=== PATIENT | female | born 1980 ===

== ENCOUNTER 2017-09-10 09:56 | Inpatient (IN) | payer BC ==
[2017-09-10] MEDS ORDERED: ceFAZolin 2 GM in Premix Bag 1 BAG IV ONE (14:12)
[2017-09-10] MEDS ORDERED: Sodium Chloride 0.9% 10 ML Syringe FLUSH PRN ×2 (14:12→16:55)
[2017-09-10] MEDS ORDERED: Citric Acid/Sodium Citrate Solution 30 ML Cup PO ONE (14:12)
[2017-09-10] MEDS ORDERED: Metoclopramide 10 MG/2 ML SDV IVPUSH ONE (14:12)
[2017-09-10] MEDS ORDERED: Lactated Ringers 1,000 ML IV SCH (14:15)
--- NOTE | 2017-09-10 14:16 | PCM.LDHP ---
<Viviana Huerta - Last Filed: 09/10/17 14:35> L&D History of Present Illness - General Date of Service: 09/10/17 Admit Problem/Dx: Admission Diagnosis/Problem Admission Diagnosis/Problem Previous section Source of Information: Patient History Limitations: Reports: No Limitations - History of Present Illness Introduction:: Patient is a that presents to labor and delivery with headaches and mild fever. Patient is 40 wks today. JACKSON is 09/10/17. Patient's blood type is O + with a negative antibody screen. She is GBS +. She had a previous section for her last . Patient has had normal follow up. Patient reports baby is moving. Baby is floating out of the pelvis, this is supported by previous ultrasound done on 09/09/17 and pelvic examination by Ludwin maneuver. Pelvic exam reveals 0 effaced, 1 cm, posterior, soft cervix. Baby is believed to be lying in an oblique position. The patient is no acute distress and the rest of physical exam is unremarkable Plan: section due to oblique lie Continue monitoring Location, : Reports: Abdomen Quality: Reports: Pressure Severity: Mild - Related Data Allergies/Adverse Reactions: Allergies Allergy/AdvReac Type Severity Reaction Status Date / Time No Known Allergies Allergy Verified 04/01/15 15:11 Home Medications: Home Meds PNV #116/Iron Fumarate/FA/DHA [Expecta Combo Pack] 1 tab PO DAILY 08/04 [History] Acetaminophen/oxyCODONE [Percocet 325-5 MG] 1 - 2 tab PO Q4H PRN #60 tablet 09/11 [Rx] Docusate Sodium/Sennosides [Senna Plus] 2 tab PO BID tablet 04/06/15 [Rx] Acetaminophen/oxyCODONE [Percocet 325-5 MG] 1 - 2 tab PO Q4H PRN #30 tablet [Rx] Ibuprofen [Motrin] 600 mg PO Q6H PRN #30 tablet 01/17/16 [Rx] Past Medical History [employer] OPERATOR History: Reports: , Spontaneous : 3 Para: 1 (1011) LMP (Approximate): - Past Surgical History HEENT Surgical History: Reports: Oral Surgery GI Surgical History: Reports: Colonoscopy, Other (See Below) Other GI Surgeries/Procedures: Partial cholectomy 04/02/14 Female Surgical History: Reports: Section (2016) Social & Family History - Tobacco Use Smoking Status *Q: Never Smoker Second Hand Smoke Exposure: No - Alcohol Use Days Per Week of Alcohol Use: 0 Number of Drinks Per Day: 0 Total Drinks Per Week: 0 - Recreational Drug Use Recreational Drug Use: No Drug Use in Last 12 Months: No H&P Review of Systems - Review of Systems: Review Of Systems: See Below General: Reports: No Symptoms HEENT: Reports: Headaches (Rated as 9/10 on 09/09/17, it is now 4/10 on . BP is within normal limits) Pulmonary: Reports: No Symptoms Cardiovascular: Reports: No Symptoms Gastrointestinal: Reports: No Symptoms Genitourinary: Reports: No Symptoms Musculoskeletal: Reports: No Symptoms Skin: Reports: No Symptoms Psychiatric: Reports: No Symptoms Neurological: Reports: Headache Hematologic/Lymphatic: Reports: No Symptoms Immunologic: Reports: No Symptoms L&D Exam - Exam Exam: See Below - Vital Signs Vital Signs: Last Vital Signs Temp 98.8 F 09/10/17 13:52 Pulse 82 09/10/17 13:52 Resp 16 09/10/17 13:52 BP 120/76 09/10/17 13:52 Pulse Ox 97 09/10/17 13:52 - OB Specific Movement: Active Heart Tones: Present Heart Tones per Min: 160 Presentation: Transverse (oblique, head to right side) - Loredo Score Loredo Score Cervix Position: Posterior Loredo Score Consistency: Soft Loredo Score Effacement: 0-30% Loredo Score Dilation: 1-2 cm Loredo Score 's Station: -3 (floating out of pelvis) Loredo Score Total: 3 - Exam General: Alert, Oriented HEENT: Conjunctiva Clear, Hearing Intact, Mucosa Moist & [place], Normal Nasal Septum Neck: Supple, Trachea Midline Lungs: Clear to Auscultation, Normal Respiratory Effort Cardiovascular: Regular Rate, Regular Rhythm Rectal Exam: Deferred Genitourinary: Normal external exam, Normal bimanual exam Back Exam: Normal Inspection Extremities: Normal Inspection, Normal Range of Motion, Non-Tender, No Pedal Edema, Normal Capillary Refill Skin: Warm, Dry, Intact Psychiatric: Alert, Normal Affect, Normal Mood Problem List Initiated/Reviewed/Updated: No Assessment/Plan Comment:: Patient is a that presents to labor and delivery with headaches and mild fever. Patient is 40 wks today. JACKSON is 09/10/17. Patient's blood type is O + with a negative antibody screen. She is GBS +. She had a previous section for her last . Patient has had normal follow up. Patient reports baby is moving. Baby is floating out of the pelvis, this is supported by previous ultrasound done on 09/09/17 and pelvic examination by Ludwin maneuver. Pelvic exam reveals 0 effaced, 1 cm, posterior, soft cervix. Baby is believed to be lying in an oblique position. The patient is no acute distress and the rest of physical exam is unremarkable Plan: section due to oblique lie Continue monitoring <Candido Macias - Last Filed: 09/10/17 14:51> L&D History of Present Illness - General Admit Problem/Dx: Patient Status Order with Admit Dx/Problem 09/10/17 14:12 Patient Status [ADT] Routine Admission Diagnosis/Problem Admission Diagnosis/Problem Previous section Source of Information: Patient History Limitations: Reports: No Limitations - History of Present Illness Introduction:: Temp last evening 100.4 patient is afebrile now headache rated as 9/10 last evening now rated at 4/10 on Ludwin's maneuver cephalic presentation his oblique lie patient's right false pelvis Location, : Reports: Abdomen Quality: Reports: Pressure Severity: Mild Improves with: Reports: None Worsens with: Reports: None Associated Symptoms: Reports: N Past Medical History Gastrointestinal History: Reports: Other (See Below) (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 (Dr. Lancaster)) [employer] OPER[employer] History: Reports: , Spontaneous LMP (Approximate): (Prior 1) H&P Review of Systems - Review of Systems: Review Of Systems: See Below General: Reports: No Symptoms HEENT: Reports: Headaches Pulmonary: Reports: No Symptoms Cardiovascular: Reports: No Symptoms Gastrointestinal: Reports: No Symptoms Genitourinary: Reports: No Symptoms Musculoskeletal: Reports: No Symptoms Skin: Reports: No Symptoms Psychiatric: Reports: No Symptoms Neurological: Reports: No Symptoms Hematologic/Lymphatic: Reports: No Symptoms Immunologic: Reports: No Symptoms L&D Exam - Exam Exam: See Below - Vital Signs Vital Signs: Last Vital Signs Temp 98.8 F 09/10/17 14:34 Pulse 77 09/10/17 14:34 Resp 16 09/10/17 14:34 BP 120/76 09/10/17 14:34 Pulse Ox 97 09/10/17 14:34 - OB Specific Fundal Height In cm: 40 Contraction Intensity: Mild Presentation: Transverse (oblique, head to right side of the patient) - Loredo Score Loredo Score Cervix Position: Posterior Loredo Score Consistency: Soft Loredo Score Effacement: 0-30% Loredo Score Dilation: 1-2 cm Loredo Score 's Station: -3 Loredo Score Total: 3 - Exam General: Alert, Oriented HEENT: Conjunctiva Clear, Hearing Intact, Mucosa Moist & [place], Normal Nasal Septum Neck: Supple, Trachea Midline Lungs: Clear to Auscultation, Normal Respiratory Effort Cardiovascular: Regular Rate, Regular Rhythm GI/Abdominal Exam: Normal Bowel Sounds, Soft, Non-Tender, No Distention, No Abnormal Bruit, Other ( midline scar from previous partial colectomy transverse scar from previous section) Rectal Exam: Normal Exam, Normal Rectal Tone Genitourinary: Normal external exam, Normal bimanual exam, Normal speculum exam Back Exam: Normal Inspection Extremities: Normal Inspection, Normal Range of Motion, Non-Tender, No Pedal Edema, Normal Capillary Refill Skin: Warm, Dry, Intact Neurological: Cranial Nerves Intact, Reflexes Equal Bilateral Psychiatric: Alert, Normal Affect, Normal Mood - Patient Data Lab Results Last 24 hrs: Laboratory Results - last 24 hr 09/10/17 Range/Units 14:30 WBC 7.00 (3.98-10.04) K/mm3 RBC 4.11 (3.98-5.22) M/mm3 Hgb 13.5 (11.2-15.7) gm/L Hct 38.5 (34.1-44.9) % MCV 93.7 (79.4-94.8) fl MCH 32.8 H (25.6-32.2) pg MCHC 35.1 (32.2-35.5) g/dl RDW Std Deviation 43.9 (36.4-46.3) fL Plt Count 123 L (182-369) K/mm3 MPV 11.6 (9.4-12.3) fl Neut % (Auto) 80.3 H (34.0-71.1) % Lymph % (Auto) 12.7 L (19.3-51.7) % Thayer % (Auto) 6.3 (4.7-12.5) % Eos % (Auto) 0 L (0.7-5.8) Baso % (Auto) 0.1 (0.1-1.2) % Neut # (Auto) 5.62 (1.56-6.13) K/mm3 Lymph # (Auto) 0.89 L (1.18-3.74) K/mm3 Thayer # (Auto) 0.44 H (0.24-0.36) K/mm3 Eos # (Auto) 0.00 L (0.04-0.36) K/mm3 Baso # (Auto) 0.01 (0.01-0.08) K/mm3 Result Diagrams: 09/10/17 14:30 - Problem List (1) Previous delivery affecting , antepartum SNOMED Code(s): 939635494 ICD Code: O34.219 - MATERNAL CARE FOR UNSP TYPE SCAR FROM PREVIOUS DEL Status: Acute Current Visit: Yes (2) Oblique lie of fetus with complication SNOMED Code(s): 822644544 ICD Code: O32.2XX0 - MATERNAL CARE FOR TRANSVERSE AND OBLIQUE LIE, UNSP Status: Acute Current Visit: Yes (3) 40 weeks gestation of SNOMED Code(s): 18047978 ICD Code: Z3A.40 - 40 WEEKS GESTATION OF Status: Acute Current Visit: Yes Problem List Initiated/Reviewed/Updated: No Orders Last 24hrs: Active Orders 24 hr Category Date Time Status Patient Status [ADT] Routine ADT 09/10/17 14:12 Active Communication Order [RC] ROUTINE Care 09/10/17 14:12 Active Heart Tones [RC] PER UNIT ROUTINE Care 09/10/17 14:12 Active Peripheral IV Care [RC] . DIRECTED Care 09/10/17 14:13 Active Procedure Site Prep Instruct [RC] ASDIRECTED Care 09/10/17 14:12 Active Verify Patient Consent Obtain [RC] PER UNIT ROUTINE Care 09/10/17 14:12 Active Vital Signs [RC] PFP Care 09/10/17 14:12 Active TYPE AND SCREEN [BBK] Stat Lab 09/10/17 14:30 Received Lactated Ringers [Ringers, Lactated] 1,000 ml Med 09/10/17 14:15 Active IV ASDIRECTED Sodium Chloride 0.9% [Saline Flush] Med 09/10/17 14:12 Active 10 ml FLUSH ASDIRECTED PRN Peripheral IV Insertion Adult [OM.PC] Routine Oth 09/10/17 14:12 Ordered Schedule Procedure [COMM] Per Unit Routine Oth 09/10/17 14:12 Ordered Resuscitation Status Routine Resus Stat 09/10/17 14:12 Ordered Medication Orders Lactated Ringer's (Ringers, Lactated) 1,000 mls @ 125 mls/hr IV ASDIRECTED CAROL Sodium Chloride (Saline Flush) 10 ml FLUSH ASDIRECTED PRN PRN Reason: Keep Vein Open
--- NOTE | 2017-09-10 14:34 | PCM.PREANE ---
Preanesthetic Assessment - Anesthesia/Transfusion/Family Hx Anesthesia History: Prior Anesthesia Without Reaction Family History of Anesthesia Reaction: Yes Transfusion History: No Prior Transfusion(s) - Review of Systems General: No Symptoms Pulmonary: No Symptoms Cardiovascular: No Symptoms Gastrointestinal: No Symptoms Neurological: No Symptoms Other: Reports: None - Physical Assessment NPO Status Date: 09/10/17 NPO Status Time: 06:00 Pulse: 77 O2 Sat by Pulse Oximetry: 97 Respiratory Rate: 16 Blood Pressure: 120/76 Temperature: 37.1 C Vital Signs: Last Vital Signs Temp 37.1 C 09/10/17 13:52 Pulse 77 09/10/17 14:00 Resp 16 09/10/17 13:52 BP 120/76 09/10/17 13:52 Pulse Ox 97 09/10/17 13:52 Height: 1.57 m Weight: 76.975 kg ASA Class: 2 Mental Status: Alert & Oriented x3 Airway Class: Mallampati = 1 Dentition: Reports: Normal Dentition Thyro-Mental Finger Breadths: 3 Mouth Opening Finger Breadths: 3 ROM/Head Extension: Full Lungs: Clear to Auscultation, Normal Respiratory Effort Cardiovascular: Regular Rate, Regular Rhythm, No Murmurs - Allergies Allergies/Adverse Reactions: Allergies Allergy/AdvReac Type Severity Reaction Status Date / Time No Known Allergies Allergy Verified 04/01/15 15:11 - Anesthesia Plan Pre-Op Medication Ordered: None - Acknowledgements Anesthesia Type Planned: Spinal Pt an Appropriate Candidate for the Planned Anesthesia: Yes Alternatives and Risks of Anesthesia Discussed w Pt/Guardian: Yes Pt/Guardian Understands and Agrees with Anesthesia Plan: Yes PreAnesthesia Questionnaire Gastrointestinal History: Reports: GERD [employer]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: , Spontaneous - Past Surgical History HEENT Surgical History: Reports: Oral Surgery GI Surgical History: Reports: Colonoscopy, Other (See Below) Other GI Surgeries/Procedures: Partial cholectomy 04/02/14 Female Surgical History: Reports: Section (2016) - SUBSTANCE USE Smoking Status *Q: Never Smoker Second Hand Smoke Exposure: No Days Per Week of Alcohol Use: 0 Number of Drinks Per Day: 0 Total Drinks Per Week: 0 Recreational Drug Use History: No - HOME MEDS Home Medications: Home Meds PNV #116/Iron Fumarate/FA/DHA [Expecta Combo Pack] 1 tab PO DAILY 08/04 [History] Acetaminophen/oxyCODONE [Percocet 325-5 MG] 1 - 2 tab PO Q4H PRN #60 tablet 09/11 [Rx] Docusate Sodium/Sennosides [Senna Plus] 2 tab PO BID tablet 04/06/15 [Rx] Acetaminophen/oxyCODONE [Percocet 325-5 MG] 1 - 2 tab PO Q4H PRN #30 tablet [Rx] Ibuprofen [Motrin] 600 mg PO Q6H PRN #30 tablet 01/17/16 [Rx] - CURRENT (IN HOUSE) MEDS Current Meds: Current Medications Cefazolin Sodium/Dextrose 2 gm (/ Premix) 50 mls @ 100 mls/hr IV ONETIME ONE Stop: 09/10/17 14:41 Lactated Ringer's (Ringers, Lactated) 1,000 mls @ 125 mls/hr IV ASDIRECTED CAROL Sodium Chloride (Saline Flush) 10 ml FLUSH ASDIRECTED PRN PRN Reason: Keep Vein Open Discontinued Medications Citric Acid/Sodium Citrate (Bicitra Solution) 30 ml PO ONETIME ONE Stop: 09/10/17 14:13 Metoclopramide HCl (Reglan) 10 mg IVPUSH ONETIME ONE Stop: 09/10/17 14:13
[2017-09-10] MEDS ORDERED: Bupivacaine 0.5% 30 ML SDV ONE (14:36)
[2017-09-10] MEDS ORDERED: Morphine PF 10 MG/10 ML SDV ONE (14:59)
[2017-09-10] MEDS ORDERED: ceFAZolin 1 GM Vial ONE (14:59)
[2017-09-10] MEDS ORDERED: Oxytocin 10 Units/1 ML SDV ONE ×2 (15:06→15:50)
[2017-09-10] MEDS ORDERED: Ketorolac 30 MG/ML SDV ONE (15:06)
[2017-09-10] MEDS ORDERED: Lactated Ringers 1,000 ML ONE ×2 (16:09)
[2017-09-10] MEDS ORDERED: diphenhydrAMINE 50 MG/ML SDV IVPUSH PRN ×2 (16:17→16:55)
--- NOTE | 2017-09-10 16:19 | PCM.POSTAN ---
POST ANESTHESIA ASSESSMENT - MENTAL STATUS Mental Status: Alert, Oriented - VITAL SIGNS Pulse Rate: 64 SaO2: 99 Resp Rate: 13 Blood Pressure: 110/65 Temperature: 36.8 C - RESPIRATORY Respiratory Status: Respiratory Rate WNL, Airway Patent, O2 Saturation Stable, Supplemental Oxygen - CARDIOVASCULAR CV Status: Pulse Rate WNL, Blood Pressure Stable - GASTROINTESTINAL GI Status: No Symptoms - PAIN Pain Score: 0 - POST OP HYDRATION Hydration Status: Adequate & Stable - OBSERVATIONS Free Text/Narrative:: no anesthesia complications noted
--- NOTE | 2017-09-10 16:33 | PCM.OPNOTE ---
- General Post-Op/Procedure Note Date of Surgery/Procedure: 09/10/17 Operative Procedure(s): Repeat section Pre Op Diagnosis: 40 weeks, prior section, oblique lie Post-Op Diagnosis: Same plus nuchal cord 1 Anesthesia Technique: Spinal Primary Surgeon: Candido Macias Secondary Surgeon: Chante Rabago Anesthesia Provider: Paul Chao Wood Room Hand: Viviana Huerta ([id number]) Reason Wood Room Hand Was Necessary: Patient safety prior section history of adhesions, history of partial collectomy; to help decrease co-morbidity, co-mortaliey Role of Wood Room Hand: assist with section and provide visibility for primary surgeon Fluid Replacement, Intraop: 2,000 Output, Urine Amount: 100 EBL in mLs: 800 Complications: None Condition: Good Free Text/Narrative:: Patient was transported to operating room #1 and placed under spinal anesthesia in the supine position with a wedge under the right hip and right flank. Ramos catheter placed gravity drainage SCDs in place and functioning prior surgery Ancef 2 g given intravenously prior surgery. Timeout performed confirming name date of and procedure as section. Patient having been prepared and draped in a sterile fashion and was brought to the operating room after confirming adequate level of anesthesia and injecting 20 mL of 0.5% Marcaine in the area of the planned incision marking the planned incision on the band drape and incision made and care was sharp section to into the anterior fascia peritoneal cavity was entered without difficulty bladder flap created pushed caudad low segment transverse performed delivering a female liveborn at 1534 hrs. Apgars 9/9 at one and 5 minutes respectively weight [address] John napkin band wrapper in attendance throughout. Vacuum extraction 1 in the green for less than 10 seconds required for assistance in delivering the head. Nuchal cord 1 reduced over the shoulders. The cord blood was collected from normal three-vessel cord placenta was removed manually endometrial cavity inspected cervical patency assured sponge needle pack asthma sharp count correct times one the uterine incision closed in 2 layers with running locking suture of 0 Monocryl for the first layer, horizontal imbricating suture modified Vinod variety of the second layer and 4 additional [id number] sutures placed for hemostasis at the incision. Both tubes and ovaries were normal clot screen from the gutters and cul-de-sac uterus placed into the abdominal cavity uterine incision inspected 2 additional figure-of- eight sutures required for hemostasis; adhesions of the omentum to the anterior abdominal wall were electrocoagulated with Bovie unit 2 for hemostasis. Sponge needle pack asthma sharp count having been correct 2 the abdominal cavity was closed with #1 PDS for the anterior fascia irrigation carried out electrocoagulation of small bleeders in the subcutaneous tissue and the skin was closed with 3-0 Monocryl Kel needle subcuticular suture Dermabond Preneo applied. Patient transported postanesthesia care unit in satisfactory condition. No blood transfusions required.
[2017-09-10] MEDS ORDERED: Acetaminophen/oxyCODONE 325-5 MG Tab PO PRN (16:55)
[2017-09-10] MEDS ORDERED: Naloxone 0.4 MG/ML SDV IVPUSH PRN (16:55)
[2017-09-10] MEDS ORDERED: ePHEDrine 50 MG/ML SDV IVPUSH PRN (16:55)
[2017-09-10] MEDS ORDERED: Dextrose 5%-Lactated Ringers 1,000 ML IV SCH (16:55)
[2017-09-10] MEDS ORDERED: Lanolin 100% Cream 7 GM Tube TOP PRN (16:55)
[2017-09-10] MEDS ORDERED: Ondansetron 4 MG/2 ML SDV IVPUSH PRN (20:58)
[2017-09-10] MEDS: Ketorolac 30 MG/ML SDV IVPUSH SCH (21:15)
[2017-09-11] MEDS: Ketorolac 30 MG/ML SDV IVPUSH SCH ×2 (04:30→10:24)
[2017-09-11] MEDS ORDERED: Dextrose 5%-0.45% NaCl 1,000 ML ONE (05:26)
[2017-09-11] MEDS ORDERED: Dextrose 5%-0.45% NaCl 1,000 ML IV SCH (06:00)
--- NOTE | 2017-09-11 09:42 | PCM.PNPP ---
- General Info Date of Service: 09/11/17 Functional Status: Reports: Pain Controlled - Review of Systems General: Reports: No Symptoms HEENT: Reports: No Symptoms Pulmonary: Reports: No Symptoms Cardiovascular: Reports: No Symptoms Gastrointestinal: Reports: No Symptoms Genitourinary: Reports: No Symptoms Musculoskeletal: Reports: No Symptoms Skin: Reports: No Symptoms Neurological: Reports: No Symptoms Psychiatric: Reports: No Symptoms - General Info Date of Service: 09/11/17 - Patient Data Vital Signs - Most Recent: Last Vital Signs Temp 96.6 F 09/10/17 17:13 Pulse 69 09/11/17 05:27 Resp 16 09/11/17 07:00 BP 92/53 L 09/11/17 05:27 Pulse Ox 95 09/11/17 05:27 Weight - Most Recent: 169 lb 11.2 oz I&O - Last 24 Hours: Intake & Output 09/10/17 09/11/17 09/11/17 22:59 06:59 14:59 Intake Total 6400 Output Total 350 300 Balance 6050 -300 Lab Results - Last 24 Hours: Laboratory Results - last 24 hr 09/10/17 09/10/17 09/11/17 Range/Units 14:30 14:30 06:46 WBC 7.00 8.09 (3.98-10.04) K/mm3 RBC 4.11 3.26 L (3.98-5.22) M/mm3 Hgb 13.5 10.7 L (11.2-15.7) gm/L Hct 38.5 30.9 L (34.1-44.9) % MCV 93.7 94.8 (79.4-94.8) fl MCH 32.8 H 32.8 H (25.6-32.2) pg MCHC 35.1 34.6 (32.2-35.5) g/dl RDW Std Deviation 43.9 43.0 (36.4-46.3) fL Plt Count 123 L 104 L (182-369) K/mm3 MPV 11.6 11.6 (9.4-12.3) fl Neut % (Auto) 80.3 H 78.7 H (34.0-71.1) % Lymph % (Auto) 12.7 L 12.1 L (19.3-51.7) % [place] % (Auto) 6.3 8.5 (4.7-12.5) % Eos % (Auto) 0 L 0.5 L (0.7-5.8) Baso % (Auto) 0.1 0.1 (0.1-1.2) % Neut # (Auto) 5.62 6.36 H (1.56-6.13) K/mm3 Lymph # (Auto) 0.89 L 0.98 L (1.18-3.74) K/mm3 [place] # (Auto) 0.44 H 0.69 H (0.24-0.36) K/mm3 Eos # (Auto) 0.00 L 0.04 (0.04-0.36) K/mm3 Baso # (Auto) 0.01 0.01 (0.01-0.08) K/mm3 Blood Type O POSITIVE Gel Antibody Screen Negative Med Orders - Current: Current Medications Acetaminophen (Tylenol) 650 mg PO Q4H PRN PRN Reason: mild pain or fever Diphenhydramine HCl (Benadryl) 25 mg IVPUSH Q6H PRN PRN Reason: Itching or Nausea Last Admin: 09/10/17 21:35 Dose: 25 mg Emollient Ointment (Lansinoh Hpa) 0 gm TOP ASDIRECTED PRN PRN Reason: Sore Nipples Ephedrine Sulfate (Ephedrine Sulfate) 5 mg IVPUSH SEECOMMENT PRN PRN Reason: Other Dextrose/Sodium Chloride (Dextrose 5%-1/2 Ns) 1,000 mls @ 125 mls/hr IV ASDIRECTED CAROL Ibuprofen (Motrin) 600 mg PO Q6H PRN PRN Reason: mild pain or fever Naloxone HCl (Narcan) 0.1 mg IVPUSH SEECOMMENT PRN PRN Reason: Respiratory Depression Ondansetron HCl (Zofran) 4 mg IVPUSH Q8H PRN PRN Reason: Nausea Last Admin: 09/10/17 21:15 Dose: 4 mg Oxycodone/Acetaminophen (Percocet 325-5 Mg) 2 tab PO Q4H PRN PRN Reason: Pain (moderate 4-6) Prenat Multivit/[place]/Iron/Folic Ac ( Plus Iron) 1 each PO DAILY [facility] Sodium Chloride (Saline Flush) 10 ml FLUSH ASDIRECTED PRN PRN Reason: Keep Vein Open Discontinued Medications Bupivacaine HCl (Marcaine 0.5%) Confirm Administered Dose 30 ml .ROUTE .[facility]-MED ONE Stop: 09/10/17 14:37 Last Admin: 09/10/17 15:31 Dose: 20 ml Cefazolin Sodium (Ancef) Confirm Administered Dose 2 gm .ROUTE .[facility]-MED ONE Stop: 09/10/17 15:00 Citric Acid/Sodium Citrate (Bicitra Solution) 30 ml PO ONETIME ONE Stop: 09/10/17 14:13 Last Admin: 09/10/17 14:52 Dose: 30 ml Diphenhydramine HCl (Benadryl) 25 mg IVPUSH Q6H PRN PRN Reason: Itching Cefazolin Sodium/Dextrose 2 gm (/ Premix) 50 mls @ 100 mls/hr IV ONETIME ONE Stop: 09/10/17 14:41 Last Admin: 09/10/17 17:43 Dose: Not Given Lactated Ringer's (Ringers, Lactated) 1,000 mls @ 125 mls/hr IV ASDIRECTED [facility] Last Admin: 09/10/17 14:30 Dose: 125 mls/hr Lactated Ringer's (Ringers, Lactated) Confirm Administered Dose 1,000 mls @ as directed .ROUTE .[facility]-MED ONE Stop: 09/10/17 16:10 Lactated Ringer's (Ringers, Lactated) Confirm Administered Dose 1,000 mls @ as directed .ROUTE .[facility]-MED ONE Stop: 09/10/17 16:10 Dextrose/Lactated Ringer's (Dextrose 5%-Lactated Ringers) 1,000 mls @ 125 mls/ hr IV ASDIRECTED [facility] Stop: 09/11/17 00:54 Last Admin: 09/10/17 21:15 Dose: 125 mls/hr Dextrose/Sodium Chloride (Dextrose 5%-1/2 Ns) Confirm Administered Dose 1,000 mls @ as directed .ROUTE .[facility]-MED ONE Stop: 09/11/17 05:27 Ketorolac Tromethamine (Toradol) Confirm Administered Dose 30 mg .ROUTE .[facility]- MED ONE Stop: 09/10/17 15:07 Ketorolac Tromethamine (Toradol) 30 mg IVPUSH Q6H [facility] Stop: 09/11/17 09:01 Last Admin: 09/11/17 04:30 Dose: 30 mg Metoclopramide HCl (Reglan) 10 mg IVPUSH ONETIME ONE Stop: 09/10/17 14:13 Last Admin: 09/10/17 14:52 Dose: 10 mg Morphine Sulfate (Duramorph Pf) Confirm Administered Dose 10 mg .ROUTE .[facility]-MED ONE Stop: 09/10/17 15:00 Oxytocin (Pitocin) Confirm Administered Dose 10 unit .ROUTE .[facility]-MED ONE Stop: 09/10/17 15:07 Oxytocin (Pitocin) Confirm Administered Dose 10 unit .ROUTE .STK-MED ONE Stop: 09/10/17 15:51 Sodium Chloride (Saline Flush) 10 ml FLUSH ASDIRECTED PRN PRN Reason: Keep Vein Open - Interaction Infant Disposition, : in Room with Family Interaction: Holding Infant Infant Feeding: Continues to Breastfeed Support Person: - Recovery Exam Fundal Tone: Firm Fundal Level: 1 Fingerbreadths Below Umbilicus Fundal Placement: Midline Lochia Amount: Small Lochia Color: Rubra/Red Perineum Description: Intact, Minimal Bruising/Swelling Episiotomy/Laceration: None Bladder Status: Indwelling Catheter in Place Urinary Elimination: Indwelling Catheter - Exam General: Alert, Oriented Neck: Supple Lungs: Clear to Auscultation, Normal Respiratory Effort Cardiovascular: Regular Rate, Regular Rhythm GI/Abdominal Exam: Normal Bowel Sounds, Soft, Non-Tender, No Organomegaly, No Distention, No Abnormal Bruit, No Mass, Pelvis Stable Extremities: Normal Inspection, Normal Range of Motion, Non-Tender, No Pedal Edema, Normal Capillary Refill Skin: Warm, Dry, Intact Wound/Incisions: Healing Well Neurological: No New Focal Deficit Psy/Mental Status: Alert, Normal Affect, Normal Mood Physical Findings Comment:: Incision healing well no problems - Problem List & Annotations (1) Previous delivery affecting , antepartum SNOMED Code(s): 051756716 Code(s): O34.219 - MATERNAL CARE FOR UNSP TYPE SCAR FROM PREVIOUS DEL Status: Acute Current Visit: Yes (2) Oblique lie of fetus with complication SNOMED Code(s): 505339885 Code(s): O32.2XX0 - MATERNAL CARE FOR TRANSVERSE AND OBLIQUE LIE, UNSP Status: Acute Current Visit: Yes Qualifiers: Fetus number: single or unspecified fetus Qualified Code(s): O32.2XX0 - Maternal care for transverse and oblique lie, not applicable or unspecified (3) 40 weeks gestation of SNOMED Code(s): 68319812 Code(s): Z3A.40 - 40 WEEKS GESTATION OF Status: Acute Current Visit: Yes - Problem List Review Problem List Initiated/Reviewed/Updated: No - My Orders Last 24 Hours: My Active Orders 09/10/17 14:12 Heart Tones [RC] PER UNIT ROUTINE Vital Signs [RC] PFP Resuscitation Status Routine 09/10/17 14:13 Peripheral IV Care [RC] . DIRECTED 09/10/17 16:34 Urinary Catheter Assessment [RC] ASDIRECTED 09/10/17 16:55 Ambulate [RC] PER UNIT ROUTINE Antiembolic Devices [RC] PER UNIT ROUTINE Communication Order [RC] PER UNIT ROUTINE Communication Order [RC] PER UNIT ROUTINE Intake and Output [RC] QSHIFT May Shower [RC] PER UNIT ROUTINE Notify Provider Intake and Out [RC] ASDIRECTED RT Incentive Spirometry [RC] Q2HWA Vital Signs [RC] Q1HR Acetaminophen [Tylenol] 650 mg PO Q4H PRN Acetaminophen/oxyCODONE [Percocet 325-5 MG] 2 tab PO Q4H PRN Lanolin [Lansinoh HPA] See Dose Instructions TOP ASDIRECTED PRN Naloxone [Narcan] 0.1 mg IVPUSH SEECOMMENT PRN Sodium Chloride 0.9% [Saline Flush] 10 ml FLUSH ASDIRECTED PRN diphenhydrAMINE [Benadryl] 25 mg IVPUSH Q6H PRN ePHEDrine [ePHEDrine Sulfate] 5 mg IVPUSH SEECOMMENT PRN Abdominal Binder [OM.PC] Per Unit Routine Assess Lochia [WOMSER] Per Unit Routine Assess Uterine Involution [WOMSER] Per Unit Routine Breast Pump [WOMSER] Per Unit Routine Convert IV to Saline Lock [OM.PC] Routine Heat Therapy [OM.PC] Per Unit Routine Medication Administration Instruction [OM.PC] Routine Peripheral IV Discontinue [OM.PC] Routine Saline Lock Insert [OM.PC] Routine Sequential Compression Device [OM.PC] Per Unit Routine 09/10/17 20:58 Ondansetron [Zofran] 4 mg IVPUSH Q8H PRN 09/10/17 Dinner Regular Diet [DIET] 09/11/17 06:00 Dextrose 5%-0.45% NaCl [Dextrose 5%-1/2 NS] 1,000 ml IV ASDIRECTED 09/11/17 09:00 Vit with Ca/FA/Iron [ Plus Iron] 1 each PO DAILY 09/11/17 15:00 Ibuprofen [Motrin] 600 mg PO Q6H PRN 09/11/17 16:43 Urinary Catheter Removal [RC] Per Unit Routine - Plan Plan:: Patient is a that presents to labor and delivery with headaches and mild fever. Patient is 40 wks today. JACK[place] is 09/10/17. Patient's blood type is O + with a negative antibody screen. She is GBS +. She had a previous section for her last . Patient has had normal follow up. Patient reports baby is moving. Baby is floating out of the pelvis, this is supported by previous ultrasound done on 09/09/17 and pelvic examination by Ludwin maneuver. Pelvic exam reveals 0 effaced, 1 cm, posterior, soft cervix. Baby is believed to be lying in an oblique position. The patient is no acute distress and the rest of physical exam is unremarkable Plan: section due to oblique lie Continue monitoring
[2017-09-11] MEDS: Prenatal Multivitamin with Calcium/Folic Acid/Iron Tab PO SCH ×2 (10:24→10:25)
[2017-09-11] MEDS: Ibuprofen 600 MG Tab PO PRN (18:25)
[2017-09-11] MEDS ORDERED: Simethicone 80 MG Tab.Chew PO PRN (19:22)
[2017-09-11] MEDS: Acetaminophen 325 MG Tab PO PRN (21:05)
[2017-09-12] MEDS: Ibuprofen 600 MG Tab PO PRN ×2 (03:50→08:50)
--- NOTE | 2017-09-12 06:06 | PCM.DCSUM1 ---
Discharge Summary - Hospital Course Free Text/Narrative:: [facility] Post-Op/Procedure Note Patient Name: ALICIA,February Date of : 84 Patient Status: Inpatient Attending Provider: Candido Macias Date: 09/10/17 16:10 Initialization Date: 09/10/17 16:10 - General Post-Op/Procedure Note Date of Surgery/Procedure: 09/10/17 Operative Procedure(s): Repeat section Pre Op Diagnosis: 40 weeks, prior section, oblique lie Post-Op Diagnosis: Same plus nuchal cord 1 Anesthesia Technique: Spinal Primary Surgeon: Candido Macias Secondary Surgeon: Chante Rabago Anesthesia Provider: Paul Chao Moulder Operator: Viviana Huerta (MS3) Reason Moulder Operator Was Necessary: Patient safety prior section history of adhesions, history of partial collectomy; to help decrease co-morbidity, co-mortaliey Role of Moulder Operator: assist with section and provide visibility for primary surgeon Fluid Replacement, Intraop: 2,000 Output, Urine Amount: 100 EBL in mLs: 800 Complications: None Condition: Good Free Text/Narrative:: Patient was transported to operating room #1 and placed under spinal anesthesia in the supine position with a wedge under the right hip and right flank. Ramos catheter placed gravity drainage SCDs in place and functioning prior surgery Ancef 2 g given intravenously prior surgery. Timeout performed confirming name date of and procedure as section. Patient having been prepared and draped in a sterile fashion and was brought to the operating room after confirming adequate level of anesthesia and injecting 20 mL of 0.5% Marcaine in the area of the planned incision marking the planned incision on the band drape and incision made and care was sharp section to into the anterior fascia peritoneal cavity was entered without difficulty bladder flap created pushed caudad low segment transverse performed delivering a female liveborn at 1534 hrs. Apgars 9/9 at one and 5 minutes respectively weight [address] John metallurgist helper in attendance throughout. Vacuum extraction 1 in the green for less than 10 seconds required for assistance in delivering the head. Nuchal cord 1 reduced over the shoulders. The cord blood was collected from normal three-vessel cord placenta was removed manually endometrial cavity inspected cervical patency assured sponge needle pack asthma sharp count correct times one the uterine incision closed in 2 layers with running locking suture of 0 Monocryl for the first layer, horizontal imbricating suture modified Vinod variety of the second layer and 4 additional [id number] sutures placed for hemostasis at the incision. Both tubes and ovaries were normal clot screen from the gutters and cul-de-sac uterus placed into the abdominal cavity uterine incision inspected 2 additional figure-of- eight sutures required for hemostasis; adhesions of the omentum to the anterior abdominal wall were electrocoagulated with Bovie unit 2 for hemostasis. Sponge needle pack asthma sharp count having been correct 2 the abdominal cavity was closed with #1 PDS for the anterior fascia irrigation carried out electrocoagulation of small bleeders in the subcutaneous tissue and the skin was closed with 3-0 Monocryl Kel needle subcuticular suture Dermabond Preneo applied. Patient transported postanesthesia care unit in satisfactory condition. No blood transfusions required. Patient did have temp of 100.4 on the first day postop but no symptoms considered to be pyrexia puerperal undetermined. Patient afebrile now incision appears normal no uterine tenderness HPI Initial Comments: [facility] Post-Op/Procedure Note Patient Name: ALICIA,February Date of : 84 Patient Status: Inpatient Attending Provider: Candido Macias Date: 09/10/17 16:10 Initialization Date: 09/10/17 16:10 - General Post-Op/Procedure Note Date of Surgery/Procedure: 09/10/17 Operative Procedure(s): Repeat section Pre Op Diagnosis: 40 weeks, prior section, oblique lie Post-Op Diagnosis: Same plus nuchal cord 1 Anesthesia Technique: Spinal Primary Surgeon: Candido Macias Secondary Surgeon: Chante Rabago Anesthesia Provider: Paul Chao Moulder Operator: Viviana Huerta (MS3) Reason Moulder Operator Was Necessary: Patient safety prior section history of adhesions, history of partial collectomy; to help decrease co-morbidity, co-mortaliey Role of Moulder Operator: assist with section and provide visibility for primary surgeon Fluid Replacement, Intraop: 2,000 Output, Urine Amount: 100 EBL in mLs: 800 Complications: None Condition: Good Free Text/Narrative:: Patient was transported to operating room #1 and placed under spinal anesthesia in the supine position with a wedge under the right hip and right flank. Ramos catheter placed gravity drainage SCDs in place and functioning prior surgery Ancef 2 g given intravenously prior surgery. Timeout performed confirming name date of and procedure as section. Patient having been prepared and draped in a sterile fashion and was brought to the operating room after confirming adequate level of anesthesia and injecting 20 mL of 0.5% Marcaine in the area of the planned incision marking the planned incision on the band drape and incision made and care was sharp section to into the anterior fascia peritoneal cavity was entered without difficulty bladder flap created pushed caudad low segment transverse performed delivering a female liveborn at 1534 hrs. Apgars 9/9 at one and 5 minutes respectively weight [address] John metallurgist helper in attendance throughout. Vacuum extraction 1 in the green for less than 10 seconds required for assistance in delivering the head. Nuchal cord 1 reduced over the shoulders. The cord blood was collected from normal three-vessel cord placenta was removed manually endometrial cavity inspected cervical patency assured sponge needle pack asthma sharp count correct times one the uterine incision closed in 2 layers with running locking suture of 0 Monocryl for the first layer, horizontal imbricating suture modified Vinod variety of the second layer and 4 additional [id number] sutures placed for hemostasis at the incision. Both tubes and ovaries were normal clot screen from the gutters and cul-de-sac uterus placed into the abdominal cavity uterine incision inspected 2 additional figure-of- eight sutures required for hemostasis; adhesions of the omentum to the anterior abdominal wall were electrocoagulated with Bovie unit 2 for hemostasis. Sponge needle pack asthma sharp count having been correct 2 the abdominal cavity was closed with #1 PDS for the anterior fascia irrigation carried out electrocoagulation of small bleeders in the subcutaneous tissue and the skin was closed with 3-0 Monocryl Kel needle subcuticular suture Dermabond Preneo applied. Patient transported postanesthesia care unit in satisfactory condition. No blood transfusions required. Patient did have temp of 100.4 on the first day postop but no symptoms considered to be pyrexia puerperal undetermined. Patient afebrile now incision appears normal no uterine tenderness Brief History: [facility] . Post-Op/Procedure Note. Patient Name: ALICIAFebruaryMedical Record Number: [id number]. Date of : Patient Status: Inpatient. Attending Provider: Candido Maciasount Number: [id number]. Date: 09/10/17 16:10Initialization Date: 09/10/17 16:10. - General Post-Op/Procedure Note. Date of Surgery/Procedure: 09/10/17. Operative Procedure(s): Repeat section. Pre Op Diagnosis: 40 weeks, prior section, oblique lie. Post-Op Diagnosis: Same plus nuchal cord 1. Anesthesia Technique: Spinal. Primary Surgeon: Candido Macias. Secondary Surgeon: Chante Rabago. Anesthesia Provider: Paul Chao. Moulder Operator: Viviana Huerta (MS3). Reason Moulder Operator Was Necessary: Patient safety prior section history of adhesions, history of partial collectomy; to help decrease co-morbidity, co-mortaliey. Role of Moulder Operator: assist with section and provide visibility for primary surgeon. Fluid Replacement, Intraop: 2,000. Output, Urine Amount: 100. EBL in mLs: 800. Complications: None. Condition: Good. Free Text/Narrative:: Patient was transported to operating room #1 and placed under spinal anesthesia in the supine position with a wedge under the right hip and right flank. Ramos catheter placed gravity drainage SCDs in place and functioning prior surgery Ancef 2 g given intravenously prior surgery. Timeout performed confirming name date of and procedure as section. Patient having been prepared and draped in a sterile fashion and was brought to the operating room after confirming adequate level of anesthesia and injecting 20 mL of 0.5% Marcaine in the area of the planned incision marking the planned incision on the band drape and incision made and care was sharp section to into the anterior fascia peritoneal cavity was entered without difficulty bladder flap created pushed caudad low segment transverse performed delivering a female liveborn at 1534 hrs. Apgars 9/9 at one and 5 minutes respectively weight [address] John metallurgist helper in attendance throughout. Vacuum extraction 1 in the green for less than 10 seconds required for assistance in delivering the head. Nuchal cord 1 reduced over the shoulders. The cord blood was collected from normal three-vessel cord placenta was removed manually endometrial cavity inspected cervical patency assured sponge needle pack asthma sharp count correct times one the uterine incision closed in 2 layers with running locking suture of 0 Monocryl for the first layer, horizontal imbricating suture modified Vinod variety of the second layer and 4 additional [id number]-[id number] sutures placed for hemostasis at the incision. Both tubes and ovaries were normal clot screen from the gutters and cul-de-sac uterus placed into the abdominal cavity uterine incision inspected 2 additional figure-of- eight sutures required for hemostasis; adhesions of the omentum to the anterior abdominal wall were electrocoagulated with Bovie unit 2 for hemostasis. Sponge needle pack asthma sharp count having been correct 2 the abdominal cavity was closed with #1 PDS for the anterior fascia irrigation carried out electrocoagulation of small bleeders in the subcutaneous tissue and the skin was closed with 3-0 Monocryl Kel needle subcuticular suture Dermabond Preneo applied. Patient transported postanesthesia care unit in satisfactory condition. No blood transfusions required. Patient did have temp of 100.4 on the first day postop but no symptoms considered to be pyrexia puerperal undetermined. Patient afebrile now incision appears normal no uterine tenderness - Discharge Data Discharge Date: 09/12/17 Discharge Disposition: Home, Self-Care 01 Condition: Good - Discharge Diagnosis/Problem(s) (1) Previous delivery affecting , antepartum SNOMED Code(s): 951218944 ICD Code: O34.219 - MATERNAL CARE FOR UNSP TYPE SCAR FROM PREVIOUS DEL Status: Acute Current Visit: Yes (2) Oblique lie of fetus with complication SNOMED Code(s): 014365743 ICD Code: O32.2XX0 - MATERNAL CARE FOR TRANSVERSE AND OBLIQUE LIE, UNSP Status: Acute Current Visit: Yes Qualifiers: Fetus number: single or unspecified fetus Qualified Code(s): O32.2XX0 - Maternal care for transverse and oblique lie, not applicable or unspecified (3) 40 weeks gestation of SNOMED Code(s): 79125803 ICD Code: Z3A.40 - 40 WEEKS GESTATION OF Status: Acute Current Visit: Yes - Patient Summary/Data Operative Procedure(s) Performed: Repeat section Complications: None Consults: None Hospital Course: Uneventful - Patient Instructions Diet: Regular Diet as Tolerated Driving: Do Not Drive (2 weeks) Showering/Bathing: May Shower, No Tub Bathing/Swimming (6 weeks) Wound/Incision Care: Keep Operative Site/Wound Site Clean and Dry Notify Provider of: Fever, Increased Pain, Swelling and Redness, Drainage, Nausea and/or Vomiting - Discharge Plan Home Medications: Home Meds PNV #116/Iron Fumarate/FA/DHA [Expecta Combo Pack] 1 tab PO DAILY 08/04 [History] Acetaminophen [Tylenol] 650 mg PO Q6H PRN tablet 09/12/17 [Rx] Ibuprofen [IJD: Ibuprofen] 600 mg PO Q6H PRN tablet 09/12/17 [Rx] Lanolin [Lansinoh HPA] 1 applic TOP ASDIRECTED PRN tube 09/12/17 [Rx] Simethicone 80 mg PO ASDIRECTED PRN tab.chew 09/12/17 [Rx] Referrals: Candido Macias MD [Primary Care Provider] - (2 weeks) - Discharge Summary/Plan Comment DC Time >30 min.: No - Patient Data Vitals - Most Recent: Last Vital Signs Temp 96.1 F 09/12/17 03:48 Pulse 76 09/12/17 03:48 Resp 16 09/12/17 03:48 BP 106/59 L 09/12/17 03:48 Pulse Ox 97 09/12/17 03:48 Weight - Most Recent: 169 lb 11.2 oz I&O - Last 24 hours: Intake & Output 09/11/17 09/11/17 09/12/17 14:59 22:59 06:59 Intake Total 1100 120 Output Total 950 Balance 150 120 Lab Results - Last 24 hrs: Laboratory Results - last 24 hr 09/11/17 Range/Units 06:46 WBC 8.09 (3.98-10.04) K/mm3 RBC 3.26 L (3.98-5.22) M/mm3 Hgb 10.7 L (11.2-15.7) gm/L Hct 30.9 L (34.1-44.9) % MCV 94.8 (79.4-94.8) fl MCH 32.8 H (25.6-32.2) pg MCHC 34.6 (32.2-35.5) g/dl RDW Std Deviation 43.0 (36.4-46.3) fL Plt Count 104 L (182-369) K/mm3 MPV 11.6 (9.4-12.3) fl Neut % (Auto) 78.7 H (34.0-71.1) % Lymph % (Auto) 12.1 L (19.3-51.7) % [place] % (Auto) 8.5 (4.7-12.5) % Eos % (Auto) 0.5 L (0.7-5.8) Baso % (Auto) 0.1 (0.1-1.2) % Neut # (Auto) 6.36 H (1.56-6.13) K/mm3 Lymph # (Auto) 0.98 L (1.18-3.74) K/mm3 [place] # (Auto) 0.69 H (0.24-0.36) K/mm3 Eos # (Auto) 0.04 (0.04-0.36) K/mm3 Baso # (Auto) 0.01 (0.01-0.08) K/mm3 Med Orders - Current: Current Medications Acetaminophen (Tylenol) 650 mg PO Q4H PRN PRN Reason: mild pain or fever Last Admin: 09/11/17 21:05 Dose: 650 mg Diphenhydramine HCl (Benadryl) 25 mg IVPUSH Q6H PRN PRN Reason: Itching or Nausea Last Admin: 09/10/17 21:35 Dose: 25 mg Emollient Ointment (Lansinoh Hpa) 0 gm TOP ASDIRECTED PRN PRN Reason: Sore Nipples Ephedrine Sulfate (Ephedrine Sulfate) 5 mg IVPUSH SEECOMMENT PRN PRN Reason: Other Dextrose/Sodium Chloride (Dextrose 5%-1/2 Ns) 1,000 mls @ 125 mls/hr IV ASDIRECTED CRAOL Ibuprofen (Motrin) 600 mg PO Q6H PRN PRN Reason: mild pain or fever Last Admin: 09/12/17 03:50 Dose: 600 mg Naloxone HCl (Narcan) 0.1 mg IVPUSH SEECOMMENT PRN PRN Reason: Respiratory Depression Ondansetron HCl (Zofran) 4 mg IVPUSH Q8H PRN PRN Reason: Nausea Last Admin: 09/10/17 21:15 Dose: 4 mg Oxycodone/Acetaminophen (Percocet 325-5 Mg) 2 tab PO Q4H PRN PRN Reason: Pain (moderate 4-6) Prenat Multivit/Kila/Iron/Folic Ac ( Plus Iron) 1 each PO DAILY [facility] Last Admin: 09/11/17 10:25 Dose: Not Given Simethicone (Simethicone) 80 mg PO ASDIRECTED PRN PRN Reason: Gas Last Admin: 09/11/17 20:30 Dose: 80 mg Sodium Chloride (Saline Flush) 10 ml FLUSH ASDIRECTED PRN PRN Reason: Keep Vein Open Discontinued Medications Bupivacaine HCl (Marcaine 0.5%) Confirm Administered Dose 30 ml .ROUTE .STK-MED ONE Stop: 09/10/17 14:37 Last Admin: 09/10/17 15:31 Dose: 20 ml Cefazolin Sodium (Ancef) Confirm Administered Dose 2 gm .ROUTE .STK-MED ONE Stop: 09/10/17 15:00 Citric Acid/Sodium Citrate (Bicitra Solution) 30 ml PO ONETIME ONE Stop: 09/10/17 14:13 Last Admin: 09/10/17 14:52 Dose: 30 ml Diphenhydramine HCl (Benadryl) 25 mg IVPUSH Q6H PRN PRN Reason: Itching Cefazolin Sodium/Dextrose 2 gm (/ Premix) 50 mls @ 100 mls/hr IV ONETIME ONE Stop: 09/10/17 14:41 Last Admin: 09/10/17 17:43 Dose: Not Given Lactated Ringer's (Ringers, Lactated) 1,000 mls @ 125 mls/hr IV ASDIRECTED [facility] Last Admin: 09/10/17 14:30 Dose: 125 mls/hr Lactated Ringer's (Ringers, Lactated) Confirm Administered Dose 1,000 mls @ as directed .ROUTE .STK-MED ONE Stop: 09/10/17 16:10 Lactated Ringer's (Ringers, Lactated) Confirm Administered Dose 1,000 mls @ as directed .ROUTE .STK-MED ONE Stop: 09/10/17 16:10 Dextrose/Lactated Ringer's (Dextrose 5%-Lactated Ringers) 1,000 mls @ 125 mls/ hr IV ASDIRECTED CAROL Stop: 09/11/17 00:54 Last Admin: 09/10/17 21:15 Dose: 125 mls/hr Dextrose/Sodium Chloride (Dextrose 5%-1/2 Ns) Confirm Administered Dose 1,000 mls @ as directed .ROUTE .STK-MED ONE Stop: 09/11/17 05:27 Last Admin: 09/11/17 10:22 Dose: Not Given Ketorolac Tromethamine (Toradol) Confirm Administered Dose 30 mg .ROUTE .STK- MED ONE Stop: 09/10/17 15:07 Ketorolac Tromethamine (Toradol) 30 mg IVPUSH Q6H CAROL Stop: 09/11/17 09:01 Last Admin: 09/11/17 10:24 Dose: 30 mg Metoclopramide HCl (Reglan) 10 mg IVPUSH ONETIME ONE Stop: 09/10/17 14:13 Last Admin: 09/10/17 14:52 Dose: 10 mg Morphine Sulfate (Duramorph Pf) Confirm Administered Dose 10 mg .ROUTE .STK-MED ONE Stop: 09/10/17 15:00 Oxytocin (Pitocin) Confirm Administered Dose 10 unit .ROUTE .STK-MED ONE Stop: 09/10/17 15:07 Oxytocin (Pitocin) Confirm Administered Dose 10 unit .ROUTE .STK-MED ONE Stop: 09/10/17 15:51 Sodium Chloride (Saline Flush) 10 ml FLUSH ASDIRECTED PRN PRN Reason: Keep Vein Open *Q Meaningful Use (DIS) - VTE *Q VTE Criteria *Q: - Stroke *Q Stroke Criteria *Q: - AMI *Q AMI Criteria *Q:
[2017-09-12] MEDS: Prenatal Multivitamin with Calcium/Folic Acid/Iron Tab PO SCH (08:11)
[2017-09-12] MEDS: Acetaminophen 325 MG Tab PO PRN (08:14)
[2017-09-12] MEDS ORDERED: Docusate Sodium 100 MG Cap PO PRN (08:14)
[2017-09-12 08:18] VITALS: BP 103/65
== END 2017-09-12 11:25 | disposition home or self-care (01) | DRG 540 ==
LOC: JD.OB 13:29
PROVIDERS: ADMIT Obstetrics & Gynecology; ATTEND Obstetrics & Gynecology
PROC: 10D00Z1 Extraction of Products of Conception, Low, Open Approach (ICD-10-PCS; principal; 2017-09-10)
DX: O32.2XX0 Maternal care for transverse and oblique lie, not applicable or unspecified (principal); Z3A.40 40 weeks gestation of pregnancy; Z37.0 Single live birth; O34.219 Maternal care for unspecified type scar from previous cesarean delivery; N85.8 Other specified noninflammatory disorders of uterus; O99.824 Streptococcus B carrier state complicating childbirth; O69.81X0 Labor and delivery complicated by cord around neck, without compression, not applicable or unspecified
CPT/HCPCS: 01961; 36415; 85025; 86850; 86900; 86901; 94762; A9270-GY; J0690; J1200; J1885; J2270; J2405; J2590; J2765; J7042; J7120